=== PATIENT | female | born 1935 | race Caucasian/White ===

== ENCOUNTER 2020-05-24 10:51 | Outpatient (CLI) | payer MEDICARE ==
--- NOTE | 2020-05-24 13:14 | ULT ---
THYROID ULTRASOUND: Date: 05/24/2020 HISTORY: Thyroid nodule. COMPARISON: None. FINDINGS: Thyroid isthmus measures 0.4 cm. Right thyroid lobe measures 4.9 x 1.5 x 2.0 cm. Left thyroid lobe measures 4.3 x 1.6 x 1.8 cm. Nodules: Right thyroid lobe: 1.7 x 1.4 x 1.3 cm cyst in upper pole. 2.1 x 1.3 x 1.5 cm solid nodule in mid-lo wer pole. 1.4 x 0.7 x 0.9 cm solid nodule in upper pole. Left thyroid lobe: Cyst with solid component in the upper pole measuring 0.8 x 0.6 x 0.7 cm. Cyst wi th solid component in the upper pole also measures 0.5 x 0.7 x 0.6 cm. Complex lesion in the lower po le measuring 0.9 x 0.6 x 0.9 cm. Isthmus: Subcentimeter cysts are identified. IMPRESSION: Multinodular thyroid gland. There are cystic, mixed solid and cystic and solid nodules. TI-RADS level of the largest solid nodule in the right thyroid lobe is TR4, mildly suspicious. Fine needle aspirat ion is recommended. With regard to the remaining lesions, follow-up imaging can be performed in 1 [facility]ett POS: [facility]
== END 2020-05-24 10:52 | disposition home or self-care (01) ==
LOC: BICULT 10:51
PROVIDERS: ATTEND Internal Medicine Cardiovascular Disease
DX: E04.2 Nontoxic multinodular goiter (principal); E07.89 Other specified disorders of thyroid
CPT/HCPCS: 76536